=== PATIENT | female | born 1985 | race Caucasian/White ===

== ENCOUNTER 2017-02-02 16:59 | Emergency (ER) | payer BC ==
--- NOTE | ~2017-02-02 | EKG ---
PATIENT: HAZEL LOVE UNIT #: [id number] Ventricular Rate: 101 BPM Atrial Rate: 101 BPM P-R Interval: 142 ms QRS Duration: 84 ms Q-T Interval: 358 ms QTC Calculation(Bezet): 464 ms P [place]: 57 degrees Calculated R [place]: 17 degrees Calculated T [place]: 46 degrees Diagnosis Line: Sinus tachycardia Diagnosis Line: Possible Left atrial enlargement Diagnosis Line: T wave abnormality, consider anterior ischemia Diagnosis Line: Abnormal ECG Diagnosis Line: No previous ECGs available Diagnosis Line: Confirmed by RASHMI CHAVEZ MD ([id number]) on Diagnosis Line: 02/03/2017 11:04:21 AM INTERPRETING MD: SCOTT GREGG
--- NOTE | ~2017-02-02 | CR72 ---
[facility]. [facility] A Service of [facility] / [facility] RADIOLOGY TEXT RESULTS PATIENT: HAZEL LOVE LOCATION: SED : 89 UNIT #: [id number] AGE: [address]: Linda Pa MD SEX: F ORDER DR: [id number] [address] [id number] MR#: [id number] #: [id number] NAME: HAZEL LOVE. : 1985 SEX: F STUDY DATE/TIME: 02/02/2017 17:47 UNIT: SED ROOM: STUDY DESCRIPTION: CR Chest Single View Portable Attending Physician: Linda Pa M.D. Ordering Physician: Linda Pa M.D. MEDICAL IMAGING REPORT This report is preliminary unless electronic signature is present. EXAM Portable chest 02/02/2017 HISTORY Shortness breath and chest pain for 3 hours today. No known injury. FINDINGS A single AP portable view of the chest shows both lungs to be clear. The heart is normal in size. The mediastinal contour is normal. No significant bone abnormalities are seen. IMPRESSION Normal portable chest. Dictated by... David Alegre M.D. THIS IS AN ELECTRONICALLY VERIFIED REPORT David Alegre M.D. at 02/03/2017 2:10 PM RAN/willa TD: 02/03/2017 07:09 JOB #: [id number] MEDICAL IMAGING REPORT Page 1 of 1
[2017-02-02] MEDS ORDERED: PRENATAL MULTI1 EAC3 PO (17:31)
[2017-02-02 17:33] LABS: BASOPHIL% 0.4 % (0-2.5); EOSINOPHIL# 0.1 X10e3 (0-0.7); EOSINOPHIL% 1.1 % (0.0-7.0); HEMATOCRIT 40.3 % (35.0-45.0); HEMOGLOBIN 13.9 gm/dL (12.0-16.0); LYMPHOCYTE# 1.8 X10e3 (1.0-3.5); LYMPHOCYTE% 20.9 % (17.0-45.0); MEAN CELL VOLUME 82.2 FL (83-96); MEAN CORPUSCULAR HEMOGLOBIN 28.3 PG (28-34); MEAN CORPUSCULAR HGB CONC 34.5 g/dL (30-36); MEAN PLATELET VOLUME 9.1 FL (6.5-11.5); MONOCYTE# 0.6 X10e3 (0-1.0); MONOCYTE% 6.9 % (3.0-12.0); NEUTROPHIL% 70.7 % (40-75); PLATELET COUNT 272 X10e3 (140-420); RED BLOOD COUNT 4.91 X10e (3.90-5.30); RED CELL DISTRIBUTION WIDTH 13.7 % (11.0-15.5); WHITE BLOOD COUNT 8.4 X10e3 (4.0-10.5)
[2017-02-02 17:34] LABS: DIFF IND NO
[2017-02-02 17:44] LABS: PROTHROMBIN TIME (PATIENT) 11.5 SECONDS (9.5-12.4)
[2017-02-02 17:45] LABS: POC - CKMB <1.0 ng/mL (0.0-7.9); POC - TROPONIN <0.05 ng/mL (<=0.05)
[2017-02-02 17:51] LABS: PARTIAL THROMBOPLASTIN TIME 26.3 SECONDS (25.6-38.1)
[2017-02-02 17:55] LABS: ALBUMIN SERUM 4.5 g/dL (3.5-5.0); BILIRUBIN, DIRECT 0.1 mg/dL (0.0-0.2); BILIRUBIN,INDIRECT 0.2 mg/dL (0.0-0.9); BILIRUBIN,TOTAL 0.3 mg/dL (0.2-2.0); BUN/CREATININE RATIO 22.22; CALCIUM SERUM 8.9 mg/dL (8.4-10.2); CREATININE SERUM 0.9 mg/dL (0.6-1.4); GLOM FILT RATE Estimated 85.9 mL/min (>60); POTASSIUM 3.7 mmol/L (3.5-5.1); PROTEIN TOTAL SERUM 7.7 g/dL (6.0-8.3)
[2017-02-02 19:29] LABS: POC - CKMB <1.0 ng/mL (0.0-7.9); POC - TROPONIN <0.05 ng/mL (<=0.05)
== END 2017-02-02 20:19 | disposition home or self-care (01) ==
LOC: SED 16:59
PROVIDERS: Emergency Medicine
DX: M94.0 Chondrocostal junction syndrome [Tietze] (principal); Z88.8 Allergy status to other drugs, medicaments and biological substances; Z79.899 Other long term (current) drug therapy
CPT/HCPCS: 36415; 71010; 80048; 80076; 82553; 83880; 84484; 85025; 85379; 85610; 85730; 93005; 99285